=== PATIENT | male | born 1970 | race Caucasian/White ===

== ENCOUNTER 2017-08-24 21:43 | Emergency (ER) | payer OTHER ==
[~2017-08-24] VITALS: Ht 182.9 cm; Wt 126.8 kg
[~2017-08-24 21:43] MED LIST: LEVOTHYROXINE200 MC1 PO; NORVASC5 MG PO
[2017-08-25 00:01] VITALS: BP 122/96
== END 2017-08-25 00:25 | disposition home or self-care (01) ==
LOC: EME 21:43
DX: S63.501A Unspecified sprain of right wrist, initial encounter (principal); S60.811A Abrasion of right wrist, initial encounter; W22.8XXA Striking against or struck by other objects, initial encounter
CPT/HCPCS: 73110; 99281; 99284